=== PATIENT | male | born 1965 | race Caucasian/White ===

== ENCOUNTER 2017-01-11 15:06 | Emergency (ER) | payer BC ==
[~2017-01-11] VITALS: Ht 177.8 cm; Wt 81.5 kg
[2017-01-11 15:11] VITALS: TEMP 36.9; Ht 177.8 cm; Wt 81.5 kg
[2017-01-11] MEDS ORDERED: ONDA4TAB46 PO (15:25)
[2017-01-11 15:30] VITALS: O2SAT 95
[2017-01-11] MEDS ORDERED: SODIUM CHLORIDE 0.9% 1000ML 1,000 ML IV STA (15:50)
[2017-01-11 16:01] LABS: BASO % 0.4 %; BASO ABS # 0.02 K/uL (0-0.2); COMPLETE YES; HEMATOCRIT 45.1 % (42-52); IG% 0.2 %; LYMPH % 17.1 %; LYMPH ABS # 0.86 K/uL (1.2-3.4); MEAN CELL VOLUME 89.7 fL (80-100); MEAN CORPUSCULAR HEMOGLOBIN 31.8 pg (25-34); MEAN CORPUSCULAR HGB CONC 35.5 g/dl (32-36); MEAN PLATELET VOLUME 8.8 fL (7.4-10.4); MONO % 6.9 %; NEUT % 75.4 %; PLATELET COUNT 226 K/uL (130-400); RED BLOOD COUNT 5.03 M/uL (4.7-6.1); WHITE BLOOD COUNT 5.04 K/uL (4.8-10.8)
[2017-01-11 16:07] LABS: ALT/SGPT 46 U/L (12-78); AST/SGOT 39 U/L (15-37); BLOOD UREA NITROGEN 18 mg/dl (7-18); BUN/CREATININE RATIO 13.6 (10-20); CALCIUM 8.4 mg/dl (8.5-10.1); CARBON DIOXIDE 28 mmol/L (21-32); CHLORIDE 98 mmol/L (98-107); GLUCOSE 100 mg/dl (70-99); POTASSIUM 3.5 mmol/L (3.5-5.1); SODIUM 135 mmol/L (136-145)
[2017-01-11 16:12] LABS: ALB/GLOB RATIO 0.8 (0.9-2); ALKALINE PHOSPHATASE 55 U/L (45-117)
[2017-01-11 16:15] LABS: URINE APPEARANCE CLEAR (CLEAR); URINE COLOR DK YELLOW; URINE NITRITE NEG (NEG); URINE SPECIFIC GRAVITY 1.027 (1.000-1.030); UROBILINOGEN NEG (NEG); ZZUR CULT IF INDIC CLEAN CATCH NO
[2017-01-11 16:20] LABS: MANUAL MICROSCOPIC REQUIRED? NO; REVIEW REQ? NO
[2017-01-11 16:22] LABS: URINE BILIRUBIN NEG (NEG)
--- NOTE | 2017-01-11 17:03 | DIAGNOSTIC IMAGING REPORT ---
CHEST 2 VIEWS ROUTINE CLINICAL HISTORY: Headache, fever, emesis, chills dyspnea COMPARISON STUDY: No previous studies for comparison. FINDINGS: Left lower lobe infiltrate. Mild emphysematous change. Diaphragms are smooth. Several scattered calcified granulomas. IMPRESSION: Left lower lobe infiltrate Electronically signed by: Alonzo Narayan M.D. 01/11/2017 5:01 PM Dictated Date/Time: 01/11/2017 5:01 PM
[2017-01-11 17:10] LABS: AMYLASE 52 U/L (25-115)
[2017-01-11] MEDS ORDERED: LEVOFLOXACIN 250 MG TAB PO STA (19:03)
--- NOTE | 2017-01-11 20:43 | DIAGNOSTIC IMAGING REPORT ---
CHEST CTA for PULMONARY ARTERIES CT DOSE: 349.92 mGy.cm HISTORY: Chest pain dyspnea TECHNIQUE: Multiaxial CT images of the chest were performed following the intravenous administration of contrast to evaluate the pulmonary arteries. Maximal intensity projection images were also obtained. COMPARISON STUDY: None. FINDINGS: The thoracic aorta is unremarkable. Pulmonary vasculature enhances appropriately. No major filling defect is identified. There are findings of consolidative infiltrative changes involving the left and to lesser extent right base. Moderate mediastinal adenopathy is noted with nodes in the aortopulmonary window measuring 21.5 cm. Pretracheal nodes measuring 1.6 cm. There are shotty superior mediastinal as well as axillary nodes bilaterally. There is moderate bilateral hilar adenopathy. IMPRESSION: 1. Study is negative for pulmonary embolus. 2. Consolidative basilar infiltrates. 3. Moderate mediastinal and hilar adenopathy. 4. If the use findings do not resolve, bronchoscopy would be suggested Electronically signed by: Alonzo Narayan M.D. 01/11/2017 8:42 PM Dictated Date/Time: 01/11/2017 8:37 PM
[2017-01-11] MEDS ORDERED: LEVO-18 PO (21:25)
--- NOTE | 2017-01-11 21:26 | EMERGENCY ROOM VISIT NOTE ---
History First contact with patient: 15:30 Chief Complaint: GI ASSESSMENT Stated Complaint: WALTON, NAUSEA, FEVER, STOMACH PAIN Nursing Triage Summary: Sunday onset of fever, headache. Sunday evening went to [facility]. Discharged with no diagnosis. Continues to have aches, intermittent headache. Also having abdominal pain. Pain started with taking Zofran Sunday and stopped when he stopped taking Zofran last night. Vomiting and diarrhea since Sunday. History of Present Illness The patient is a 51 year old male who presents to the Emergency Room via private vehicle with complaints of "headache, nausea, fever, stomach pain". The patient states that Sunday night he felt chills, feverish and then felt very warm. He states that Sunday he laid around all day. He notes that Sunday morning he called into work sick as he felt very warm and had a throbbing headache. He states that he did have a minor cough. He states that he felt body aches. He states he then ran a temperature of 103F orally. He states he was seen Sunday night at [facility] emergency department where labs, blood culture, chest x-ray and CT of his head were obtained. He states that the headache was very bad at that point. He believes the results were okay. He was hydrated with 2 L of normal saline at that point. He was also given Tylenol and something else in his IV. He states that after one hour of leaving the hospital he developed chills again. He states that he then felt vomiting with dry heaves and little bit of phlegm with minimal abdominal pain. He denies abdominal pain at this time. He states he has been trying to drink a lot of Gatorade to stay hydrated. He denies any urinary symptoms. He denies any chest pain, shortness of breath, current abdominal pain. There is minimal neck pain, minimal headache and some diarrhea. Review of Systems A complete 10-point Review of Systems was discussed with the patient, with pertinent positives and negatives listed in the History of Present Illness. All remaining Review of Systems questions can be considered negative unless otherwise specified. Past Medical/Surgical History No pertinent past medical history at this time. Social History Smoking Status: Former Smoker Social History: No pertinent family history at this time. Current/Historical Medications Scheduled Levofloxacin (Levaquin), 1 TAB PO DAILY Scheduled PRN Ondansetron Hcl (Zofran), 4 MG PO Q6 PRN for Nausea Allergies Coded Allergies: No Known Allergies (Unverified , 01/11/17) Physical Exam Vital Signs Date Time Temp Pulse Resp B/P Pulse Ox O2 Delivery O2 Flow Rate FiO2 01/11/17 21:37 76 16 123/59 98 01/11/17 19:30 98 01/11/17 19:21 98 16 141/91 93 Room Air 01/11/17 17:31 131/87 01/11/17 17:13 143/89 01/11/17 16:36 104 01/11/17 16:06 105 21 96 01/11/17 16:01 134/86 01/11/17 15:36 108 17 01/11/17 15:31 102 01/11/17 15:31 129/91 01/11/17 15:30 95 Room Air 01/11/17 15:26 154/87 01/11/17 15:11 36.9 120 20 134/74 93 Room Air Physical Exam VITAL SIGNS - Vital signs and nursing notes were reviewed. Patient is afebrile , normotensive at 134/74, tachycardic at a rate of 120 bpm, and is saturating on room air 93%. GENERAL -51-year-old male appearing his stated age who is in no acute distress. Communicates well with provider and answers questions appropriately. SKIN - Without rashes. No petechial rashes. HEAD - NC/AT. EYES - PERRL with EOMI bilaterally. Sclera anicteric. Palpebral conjunctiva pink and moist with no injection noted. EARS - No deformities of external structures noted on gross examination bilaterally. No pain elicited with palpation of the tragus bilaterally. External auditory canals without discharge or otorrhea. Tympanic membranes pearly coughlin without retraction or bulging. No fluid or purulent material visualized behind the TM. Handle of malleus, umbo, cone of light, pars tensa/ flaccid all easily visualized. NOSE - Midline and without cyanosis. No epistaxis or purulent drainage noted. Septum midline without deviation or septal hematoma noted. MOUTH/OROPHARYNX - Without perioral cyanosis. Buccal mucosa pink and moist and without leukoplakia. Tongue midline with equal elevation of palate bilaterally. No tonsillar hypertrophy, erythema, or exudates noted. Fair dentition noted. NECK - Neck with FROM. Supple to palpation. No lymphadenopathy noted. No nuchal rigidity. No meningismus. LUNGS - Chest wall symmetric without accessory muscle use, intercostals retractions, or central cyanosis. Normal vesicular breath sounds CTA B/L. No wheezes, rales, or rhonchi appreciated. CARDIAC - RRR with S1/S2. No murmur, rubs, or gallops appreciated. ABDOMEN - Abdominal contour without pulsations or visible masses. BS normoactive all four quadrants. No tenderness, palpable masses, hepatosplenomegaly, or ascites noted. EXTREMITIES - No clubbing or peripheral cyanosis. No pretibial edema present. + 5/5 strength noted in UE/LE bilaterally. NEUROLOGIC - Cranial nerves II through XII grossly intact. PSYCH - Pt is very pleasant and interacts well with examiner. Medical Decision & Procedures ER Provider Diagnostic Interpretation: CHEST 2 VIEWS ROUTINE CLINICAL HISTORY: Headache, fever, emesis, chills dyspnea COMPARISON STUDY: No previous studies for comparison. FINDINGS: Left lower lobe infiltrate. Mild emphysematous change. Diaphragms are smooth. Several scattered calcified granulomas. IMPRESSION: Left lower lobe infiltrate Electronically signed by: Alonzo Narayan M.D. 01/11/2017 5:01 PM Dictated Date/Time: 01/11/2017 5:01 PM CHEST CTA for PULMONARY ARTERIES CT DOSE: 349.92 mGy.cm HISTORY: Chest pain dyspnea TECHNIQUE: Multiaxial CT images of the chest were performed following the intravenous administration of contrast to evaluate the pulmonary arteries. Maximal intensity projection images were also obtained. COMPARISON STUDY: None. FINDINGS: The thoracic aorta is unremarkable. Pulmonary vasculature enhances appropriately. No major filling defect is identified. There are findings of consolidative infiltrative changes involving the left and to lesser extent right base. Moderate mediastinal adenopathy is noted with nodes in the aortopulmonary window measuring 21.5 cm. Pretracheal nodes measuring 1.6 cm. There are shotty superior mediastinal as well as axillary nodes bilaterally. There is moderate bilateral hilar adenopathy. IMPRESSION: 1. Study is negative for pulmonary embolus. 2. Consolidative basilar infiltrates. 3. Moderate mediastinal and hilar adenopathy. 4. If the use findings do not resolve, bronchoscopy would be suggested Electronically signed by: Alonzo Narayan M.D. 01/11/2017 8:42 PM Dictated Date/Time: 01/11/2017 8:37 PM Laboratory Results 01/11/17 15:32 Red Blood Count 5.03, Mean Corpuscular Volume 89.7, Mean Corpuscular Hemoglobin 31.8, Mean Corpuscular Hemoglobin Concent 35.5, Mean Platelet Volume 8.8, Neutrophils (%) (Auto) 75.4, Lymphocytes (%) (Auto) 17.1, Monocytes (%) (Auto) 6.9, Eosinophils (%) (Auto) 0.0, Basophils (%) (Auto) 0.4, Neutrophils # (Auto) 3.80, Lymphocytes # (Auto) 0.86, Monocytes # (Auto) 0.35, Eosinophils # (Auto) 0.00, Basophils # (Auto) 0.02 01/11/17 15:32 Test 01/11/17 15:30 01/11/17 15:32 01/11/17 16:32 Urine Color DK YELLOW Urine Appearance CLEAR (CLEAR) Urine pH 5.0 (4.5-7.5) Urine Specific [place] 1.027 (1.000-1.030) Urine Protein 2+ (NEG) Urine Glucose (UA) 1+ (NEG) Urine Ketones 1+ (NEG) Urine Occult Blood TRACE (NEG) Urine Nitrite NEG (NEG) Urine Bilirubin NEG (NEG) Urine Urobilinogen NEG (NEG) Urine Leukocyte Esterase NEG (NEG) Urine WBC (Auto) 1-5 /hpf (0-5) Urine RBC (Auto) 0-4 /hpf (0-4) Urine Hyaline Casts (Auto) 5-10 /lpf (0-5) Urine Epithelial Cells (Auto) 10-20 /lpf (0-5) Urine Bacteria (Auto) NEG (NEG) White Blood Count 5.04 K/uL (4.8-10.8) Red Blood Count 5.03 M/uL (4.7-6.1) Hemoglobin 16.0 g/dL (14.0-18.0) Hematocrit 45.1 % (42-52) Mean Corpuscular Volume 89.7 fL (80-100) Mean Corpuscular Hemoglobin 31.8 pg (25-34) Mean Corpuscular Hemoglobin Concent 35.5 g/dl (32-36) Platelet Count 226 K/uL (130-400) Mean Platelet Volume 8.8 fL (7.4-10.4) Neutrophils (%) (Auto) 75.4 % Lymphocytes (%) (Auto) 17.1 % Monocytes (%) (Auto) 6.9 % Eosinophils (%) (Auto) 0.0 % Basophils (%) (Auto) 0.4 % Neutrophils # (Auto) 3.80 K/uL (1.4-6.5) Lymphocytes # (Auto) 0.86 K/uL (1.2-3.4) Monocytes # (Auto) 0.35 K/uL (0.11-0.59) Eosinophils # (Auto) 0.00 K/uL (0-0.5) Basophils # (Auto) 0.02 K/uL (0-0.2) RDW Standard Deviation 40.6 fL (36.4-46.3) RDW Coefficient of Variation 12.3 % (11.5-14.5) Immature Granulocyte % (Auto) 0.2 % Immature Granulocyte # (Auto) 0.01 K/uL (0.00-0.02) D-Dimer 1110 ug/L FEU (0-500) Anion Gap 9.0 mmol/L (3-11) Est Creatinine Clear Calc Drug Dose 68.6 ml/min Estimated GFR () 72.7 Estimated GFR (Non- 62.7 BUN/Creatinine Ratio 13.6 (10-20) Calcium Level 8.4 mg/dl (8.5-10.1) Total Bilirubin 0.7 mg/dl (0.2-1) Aspartate Amino Transf (AST/SGOT) 39 U/L (15-37) Alanine Aminotransferase (ALT/SGPT) 46 U/L (12-78) Alkaline Phosphatase 55 U/L (45-117) Total Creatine Kinase 81 U/L (39-308) Creatine Kinase MB < 0.5 ng/ml (0.5-3.6) Creatine Kinase MB Ratio (0-3.0) Troponin I < 0.015 ng/ml (0-0.045) Total Protein 7.6 gm/dl (6.4-8.2) Albumin 3.4 gm/dl (3.4-5.0) Globulin 4.2 gm/dl (2.5-4.0) Albumin/Globulin Ratio 0.8 (0.9-2) Amylase Level 52 U/L (25-115) Lipase 234 U/L (73-393) Lactic Acid Level 0.7 mmol/L (0.4-2.0) Medications Administered Medications (Trade) Dose Ordered Sig/Rony Route Start Time Stop Time Status Last Admin Dose Admin Sodium Chloride (Nss 1000ml) 1,000 ml @ 999 mls/hr Q1H1M STAT IV 01/11/17 15:50 01/11/17 16:50 DC 01/11/17 16:06 999 MLS/HR Levofloxacin (Levaquin Tab) 750 mg NOW STAT PO 01/11/17 19:03 01/11/17 19:04 DC 01/11/17 19:03 750 MG Medical Decision Patient was seen and evaluated as above. After obtaining a thorough history and physical examination IV access was initiated and the above workup was performed. Patient presents with a set of vague symptoms. He has no abdominal pain at this time. He clinically appears to may have a diaphragmatic irritation secondary to pneumonia with a dry cough, fevers and chills. CBC reveals no leukocytosis or anemia. Sodium low at 135, calcium low at 8.4, AST high at 39, globulin high at 4.2, amylase and lipase within normal limits, lactic acid within normal limits at 0.7, urine reveals trace occult blood, trace ketones, 5-10 hyaline cast, and 10-20 epithelial cells. Patient was informed upon these findings. Chest x-ray was also obtained. This was a 2 view to better evaluate the lungs. Results as above. I agreed radiologist findings. These are consistent with the clinical diagnosis of pneumonia. Patient was persistently tachycardia, despite provided with fluids here in the emergency department. At this time I did discuss benefits versus risk of further pursuing pulmonary embolism with the patient. D-dimer was obtained. D- dimer elevated at 1110. Patient was offered CT scan after discussing benefits versus risks. He agreed. CT scan of the chest was initiated for pulmonary embolism. This was negative for PE, and better describe the pneumonia. There is associated lymphadenopathy. I discussed the case with the pharmacist, and the decision was made to place the patient on Levaquin, 750 mg daily for 5 days. He was given his first dose here. The other 4 days was sent to his pharmacy. I did risk stratify the patient, and he is curb 65 negative. He at this time does not meet any criteria for inpatient admission. He feels safe monitoring and managing his symptoms at home. He is to return for any worsening. He had this time does not have a family doctor, but indicates that he is going to look into getting a family doctor within this coming week. I do believe this is reasonable, noting that he can return here at any time for worsening. Patient was prescribed Zofran, and this is a QT prolonging agents as well as Levaquin. An EKG was obtained, and found to be normal sinus rhythm. No QT prolongation. I do believe that stopping the Zofran and beginning the Levaquin will be safe. Patient was educated upon management today's findings, educated upon worrisome symptoms which to return, had questions prior to discharge and was discharged home in good condition. In the evaluation treatment this patient the following differential diagnoses were entertained: NE, PE, pneumonia, sepsis, among others. Impression Primary Impression: Pneumonia Departure Information Dispostion Home / Self-Care Condition GOOD Prescriptions Levofloxacin (LEVAQUIN) 750 Mg Tab 1 TAB PO DAILY for 4 Days, #4 TAB Prov: Jono Wiley, ANDERSON 01/11/17 Referrals No Doctor, Assigned (PCP) Patient Instructions ED Pneumonia, [facility] Additional Instructions You were seen in the emergency department and been diagnosed with pneumonia. As we discussed please rest, drink plenty of fluids such as water and Gatorade and eat healthy. Please establish a family doctor soon as possible. Please follow up regarding today's findings as we discussed. You've been prescribed Levaquin. This is one tablet daily for the next 4 days. Please return to the emergency department with any new/concerning symptoms. Thank you for your time.
[2017-01-11 21:37] VITALS: BP 123/59; PULSE 76; O2SAT 98
== END 2017-01-11 21:38 | disposition home or self-care (01) ==
LOC: C.EDB 15:10
DX: J18.9 Pneumonia, unspecified organism (principal); Z87.891 Personal history of nicotine dependence